=== PATIENT | male | born 2000 | race Caucasian/White ===

== ENCOUNTER 2020-09-05 17:20 | Inpatient (IN) ==
[~2020-09-05 17:20] MED LIST: *HR* Etomidate 20 MG/10 ML AMPUL IVP ONE; *HR* Rocuronium Bromide 100 MG/10 ML VIAL IVP ONE
[2020-09-05] MEDS ORDERED: Isovue-370 500 ML BOTTLE IVP ONE (17:40)
[2020-09-05] MEDS ORDERED: 0.9 % Sodium Chloride 1,000 ML IVC ONE ×3 (17:43→19:25)
[2020-09-05 18:13] LABS: Hematocrit 45.5 % (37.5-50.1); Hemoglobin 15.2 g/dL (12.9-16.9); Mean Corpuscular HGB Conc 33.4 g/dL (31.6-35.5); Mean Corpuscular Hemoglobin 31.8 pg (28.0-33.3); Mean Corpuscular Volume 95.2 fL (83.0-100.0); Mean Platelet Volume 9.6 fL (9.4-12.4); Platelet Count 173 K/mcL (140-400); Red Blood Count 4.78 M/mcL (4.19-5.50); Red Cell Distribution Width 11.8 % (11.5-14.5); White Blood Count 12.1 K/mcL (4.3-11.1)
[2020-09-05 18:14] LABS: INR 1.7; Prothrombin Time 19.4 Seconds (9.4-12.1)
[2020-09-05 18:16] LABS: Activated Partial Thrombo Time 35.4 Seconds (26.0-36.0)
[2020-09-05] MEDS ORDERED: Piperacillin/Tazobactam 3.375 GM in 0.9 % Sodium Chloride Mini Bag 100 ML IVPB ONE (18:18)
[2020-09-05 18:36] LABS: Acetaminophen < 10 mcg/mL (10-20); Alanine Aminotransferase 304 Units/L (7-52); Albumin 4.3 g/dL (3.5-5.7); Albumin/Globulin Ratio 1.9 (1.1-2.2); Alkaline Phosphatase 56 Units/L (34-104); Aspartate Amino Transferase 367 Units/L (13-39); BUN/Creatinine Ratio 11 (6-26); Bilirubin,Direct 0.5 mg/dL (0.0-0.2); Bilirubin,Indirect 1.4 mg/dL (0.0-1.0); Bilirubin,Total 1.9 mg/dL (0.3-1.0); Blood Urea Nitrogen 19 mg/dL (6-20); Calcium 9.1 mg/dL (8.6-10.3); Carbon Dioxide 24 mEq/L (23-29); Chloride 106 mEq/L (98-107); Creatine Kinase 1854 Units/L (30-223); Ethanol < 10 mg/dL (Less than 10); Globulin 2.3 g/dL (2.4-3.5); Glucose 100 mg/dL (70-105); Osmolality,Calculated 292 (280-300); Potassium 5.1 mEq/L (3.5-5.1); Sodium 140 mEq/L (136-145); Total Protein 6.6 g/dL (6.4-8.9); Troponin I 2.23 ng/mL (< 0.04); eGFR For African Americans 58 (> 60); eGFR For Non-African Americans 48 (> 60)
[2020-09-05 18:43] LABS: Lymphocytes # 3.6 K/mcL (0.6-4.6); Monocytes # 0.7 K/mcL (0.0-1.3); Platelet Estimate Normal (Normal)
[2020-09-05 18:45] LABS: Thyroid Stimulating Hormone 0.395 mcIU/mL (0.340-5.600)
[2020-09-05] MEDS ORDERED: *HR* FentaNYL (PF) 1,000 MCG/20 ML VIAL ONE (18:48)
[2020-09-05] MEDS ORDERED: 0.9 % Sodium Chloride 1,000 ML ONE (18:52)
[2020-09-05] MEDS: FentaNYL (PF) 1,000 MCG/100 ML IV.SOLN IVC SCH (19:00)
[2020-09-05 19:07] LABS: Bilirubin,Urine Negative (Negative); Blood,Urine Small (Negative); Clarity,Urine Clear (Clear); Color,Urine Light-Yellow (Yellow); Glucose,Urine (UA) 100 mg/dL (Normal); Ketones,Urine Negative (Negative); Leukocyte Esterase,Urine Negative (Negative); Mucus,Urine Few per lpf (None-Few); Nitrite,Urine Negative (Negative); PH,Urine 5.5 pH Units (5.0-8.0); Protein,Urine Trace mg/dL (Neg-Trace); RBC,Urine 0-3 per hpf (0-3); Specific Gravity,Urine 1.012 (1.010-1.025); Squamous Epithelial Cell,Urine Few per hpf (None-Few); Urobilinogen,Urine Normal (Normal); WBC,Urine 0-3 per hpf (0-3)
[2020-09-05 19:17] LABS: Amphetamine Screen,Urine Negative ng/mL (Cutoff=1000); Barbiturate Screen,Urine Negative ng/mL (Cutoff=200); Benzodiazepines Screen,Urine Negative ng/mL (Cutoff=200); Cannabinoid Screen,Urine Positive ng/mL (Cutoff = 50); Cocaine Screen,Urine Negative ng/mL (Cutoff= 300); Opiate Screen,Urine Negative ng/mL (Cutoff=300); Phencyclidine Screen,Urine Negative ng/mL (Cutoff=25)
[2020-09-05 20:03] LABS: ABG Base Excess -7 mEq/L (-2 to 3); ABG HCO3 22 mEq/L (21-27); ABG Oxygen Saturation 87 % (95-98); ABG PCO2 54 mmHg (35-45); ABG PH 7.21 pH Units (7.32-7.45); ABG PO2 64 mmHg (85-104); ABG TCO2 23 mEq/L (20-26); Blood Gas Modality ASSIST CONTROL; Blood Gas VT 450 cc
[2020-09-05 20:47] LABS: Salicylate < 2.5 mg/dL (15.0-30.0)
[2020-09-05] MEDS ORDERED: Naloxone 0.4 MG/ML INJ IVP PRN (21:26)
[2020-09-05] MEDS ORDERED: 0.9 % Sodium Chloride 1,000 ML IVC SCH (21:30)
[2020-09-05] MEDS ORDERED: Vancomycin (wt based) 1,000 MG VIAL IVPB SCH (22:00)
[2020-09-05 22:02] LABS: Prolactin 24.47 ng/mL (3.00-14.70)
[2020-09-05] MEDS ORDERED: Artificial Tears SOLN 15 ML BOTTLE BOTH EYES PRN (23:00)
[2020-09-05] MEDS ORDERED: levETIRAcetam 1,000 MG in 0.9 % Sodium Chloride 100 ML IVPB ONE (23:10)
[2020-09-05 23:21] LABS: ABG Base Excess -2 mEq/L (-2 to 3); ABG HCO3 27 mEq/L (21-27); ABG Oxygen Saturation 95 % (95-98); ABG PCO2 64 mmHg (35-45); ABG PH 7.24 pH Units (7.32-7.45); ABG PO2 88 mmHg (85-104); ABG TCO2 29 mEq/L (20-26); Blood Gas Modality ASSIST CONTROL; Blood Gas VT 450 cc
[2020-09-05] MEDS: Artificial Tears SOLN 15 ML BOTTLE BOTH EYES SCH (23:26)
[2020-09-06 00:01] LABS: Troponin I 1.99 ng/mL (< 0.04)
[2020-09-06] MEDS: Midazolam HCl 50 MG/100 ML IV.SOLN IVC SCH (01:18)
[2020-09-06 01:23] LABS: VBG Ionized Calcium 0.98 mmol/L (1.15-1.35)
[2020-09-06 01:41] LABS: BUN/Creatinine Ratio 15 (6-26); Blood Urea Nitrogen 19 mg/dL (6-20); Carbon Dioxide 24 mEq/L (23-29); Chloride 110 mEq/L (98-107); Glucose 85 mg/dL (70-105); Osmolality,Calculated 292 (280-300); Potassium 5.5 mEq/L (3.5-5.1); Sodium 140 mEq/L (136-145); eGFR For African Americans > 60 (> 60); eGFR For Non-African Americans > 60 (> 60)
[2020-09-06] MEDS: Calcium Gluconate 1gm/50mL 1 GM/50 ML BAG IVPB PRN ×2 (02:24→14:26)
[2020-09-06 03:51] LABS: VBG Ionized Calcium 1.03 mmol/L (1.15-1.35)
[2020-09-06] MEDS: Artificial Tears SOLN 15 ML BOTTLE BOTH EYES SCH ×6 (03:55→23:32)
[2020-09-06] MEDS: FentaNYL (PF) 1,000 MCG/100 ML IV.SOLN IVC SCH (03:56)
[2020-09-06] MEDS ORDERED: Piperacillin/Tazobactam 3.375 GM in 0.9 % Sodium Chloride Mini Bag 100 ML IVPB SCH (04:00)
[2020-09-06 04:05] LABS: Alanine Aminotransferase 448 Units/L (7-52); Albumin 3.4 g/dL (3.5-5.7); Albumin/Globulin Ratio 1.9 (1.1-2.2); Alkaline Phosphatase 42 Units/L (34-104); Aspartate Amino Transferase 445 Units/L (13-39); BUN/Creatinine Ratio 16 (6-26); Bilirubin,Total 2.5 mg/dL (0.3-1.0); Blood Urea Nitrogen 19 mg/dL (6-20); Calcium 7.5 mg/dL (8.6-10.3); Carbon Dioxide 25 mEq/L (23-29); Chloride 111 mEq/L (98-107); Globulin 1.8 g/dL (2.4-3.5); Glucose 83 mg/dL (70-105); Magnesium 1.5 mg/dL (1.6-2.6); Osmolality,Calculated 295 (280-300); Phosphorous 3.6 mg/dL (2.7-4.5); Potassium 4.6 mEq/L (3.5-5.1); Sodium 142 mEq/L (136-145); Total Protein 5.2 g/dL (6.4-8.9); eGFR For African Americans > 60 (> 60); eGFR For Non-African Americans > 60 (> 60)
[2020-09-06 04:10] LABS: Hemoglobin 12.9 g/dL (12.9-16.9); Mean Corpuscular HGB Conc 33.1 g/dL (31.6-35.5); Mean Corpuscular Hemoglobin 32.3 pg (28.0-33.3); Mean Corpuscular Volume 97.5 fL (83.0-100.0); Mean Platelet Volume 9.8 fL (9.4-12.4); Platelet Count 117 K/mcL (140-400); White Blood Count 8.6 K/mcL (4.3-11.1)
[2020-09-06] MEDS: 0.9 % Sodium Chloride 1,000 ML IVC SCH ×2 (04:40→12:45)
[2020-09-06 04:42] LABS: ABG Base Excess -1 mEq/L (-2 to 3); ABG HCO3 25 mEq/L (21-27); ABG Oxygen Saturation 96 % (95-98); ABG PCO2 48 mmHg (35-45); ABG PH 7.33 pH Units (7.32-7.45); ABG PO2 91 mmHg (85-104); ABG TCO2 27 mEq/L (20-26); Blood Gas Modality ASSIST CONTROL; Blood Gas VT 450 cc
[2020-09-06 05:09] LABS: Lymphocytes # 1.2 K/mcL (0.6-4.6); Monocytes # 0.2 K/mcL (0.0-1.3); Neutrophils # 6.5 K/mcL (1.6-8.9); Platelet Estimate Slight Decrease (Normal)
[2020-09-06 05:10] LABS: Anisocytosis 1+ (Not Present); Toxic Granulation Present (Not Present); Toxic Vacuolation Present (Not Present)
[2020-09-06 05:25] LABS: Hematocrit 36.9 % (37.5-50.1); Hemoglobin 12.2 g/dL (12.9-16.9); Immature Platelets 3.6 % (1.1-6.1); Mean Corpuscular HGB Conc 33.1 g/dL (31.6-35.5); Mean Corpuscular Hemoglobin 31.8 pg (28.0-33.3); Mean Corpuscular Volume 96.1 fL (83.0-100.0); Mean Platelet Volume 9.5 fL (9.4-12.4); Nucleated Red Blood Cells 0.2 /100 WBC (0); Platelet Count 103 K/mcL (140-400); Red Blood Count 3.84 M/mcL (4.19-5.50); Red Cell Distribution Width 12.1 % (11.5-14.5); White Blood Count 8.4 K/mcL (4.3-11.1)
[2020-09-06] MEDS: Vancomycin 1,250 MG/262.5 ML IV.SOLN IVPB SCH ×2 (05:32→17:57)
[2020-09-06 05:40] LABS: BUN/Creatinine Ratio 16 (6-26); Blood Urea Nitrogen 17 mg/dL (6-20); Calcium 6.6 mg/dL (8.6-10.3); Carbon Dioxide 24 mEq/L (23-29); Chloride 113 mEq/L (98-107); Glucose 76 mg/dL (70-105); Osmolality,Calculated 296 (280-300); Sodium 143 mEq/L (136-145); eGFR For African Americans > 60 (> 60); eGFR For Non-African Americans > 60 (> 60)
[2020-09-06 05:56] LABS: Acetaminophen < 10 mcg/mL (10-20); Monocytes # 0.2 K/mcL (0.0-1.3); Neutrophils # 5.7 K/mcL (1.6-8.9)
[2020-09-06 05:57] LABS: Anisocytosis 1+ (Not Present); Platelet Estimate Slight Decrease (Normal); Toxic Granulation Present (Not Present); Toxic Vacuolation Present (Not Present)
[2020-09-06] MEDS: *HR* Heparin 5,000 UNIT/ML VIAL SQ SCH ×3 (06:01→20:29)
[2020-09-06] MEDS: Pantoprazole 40 MG VIAL IVP SCH (07:22)
[2020-09-06] MEDS: Chlorhexidine Rinse 15 ML MOUTHWASH MM SCH ×2 (07:22→19:45)
[2020-09-06 08:35] LABS: VBG Ionized Calcium 1.02 mmol/L (1.15-1.35)
[2020-09-06 08:38] LABS: INR 2.3; Prothrombin Time 26.5 Seconds (9.4-12.1)
[2020-09-06] MEDS ORDERED: Perflutren Lipid Microsphere 1.3 ML in 0.9 % Sodium Chloride 8.7 ML IVP PRN (11:05)
[2020-09-06] MEDS: Cefepime HCl 2,000 MG in Water for inj. (sterile) 20 ML IVP SCH ×2 (11:47→19:09)
[2020-09-06 12:37] LABS: VBG Ionized Calcium 1.05 mmol/L (1.15-1.35)
[2020-09-06 12:56] LABS: BUN/Creatinine Ratio 17 (6-26); Blood Urea Nitrogen 18 mg/dL (6-20); Calcium 7.6 mg/dL (8.6-10.3); Carbon Dioxide 25 mEq/L (23-29); Chloride 109 mEq/L (98-107); Creatine Kinase 1808 Units/L (30-223); Glucose 89 mg/dL (70-105); Osmolality,Calculated 293 (280-300); Potassium 4.4 mEq/L (3.5-5.1); Sodium 141 mEq/L (136-145); eGFR For African Americans > 60 (> 60); eGFR For Non-African Americans > 60 (> 60)
[2020-09-06 13:03] LABS: Troponin I 1.38 ng/mL (< 0.04)
[2020-09-06] MEDS ORDERED: Furosemide 20 MG/2 ML VIAL IVP ONE ×2 (13:26→13:31)
[2020-09-06] MEDS ORDERED: Gadolinium Contrast Agent (WT Based) IV PRN ×2 (17:09→17:44)
[2020-09-06] MEDS: Furosemide 20 MG/2 ML VIAL IVP SCH (19:45)
[2020-09-06] MEDS ORDERED: levETIRAcetam 250 MG in 0.9 % Sodium Chloride 100 ML IVPB SCH (21:00)
[2020-09-06 22:13] LABS: Magnesium 1.9 mg/dL (1.6-2.6)
[2020-09-06] MEDS: Acyclovir 800 MG in D5% in Water 250 ML IVPB SCH (23:33)
[2020-09-07] MEDS: Midazolam HCl 50 MG/100 ML IV.SOLN IVC SCH (02:41)
[2020-09-07] MEDS: Artificial Tears SOLN 15 ML BOTTLE BOTH EYES SCH ×4 (02:41→15:24)
[2020-09-07] MEDS: Cefepime HCl 2,000 MG in Water for inj. (sterile) 20 ML IVP SCH ×3 (02:47→18:19)
[2020-09-07 03:15] LABS: BUN/Creatinine Ratio 22 (6-26); Blood Urea Nitrogen 21 mg/dL (6-20); Calcium 8.4 mg/dL (8.6-10.3); Carbon Dioxide 30 mEq/L (23-29); Chloride 103 mEq/L (98-107); Glucose 90 mg/dL (70-105); Osmolality,Calculated 291 (280-300); Sodium 139 mEq/L (136-145); eGFR For African Americans > 60 (> 60); eGFR For Non-African Americans > 60 (> 60)
[2020-09-07] MEDS: *HR* Heparin 5,000 UNIT/ML VIAL SQ SCH ×2 (06:07→23:03)
[2020-09-07 06:54] LABS: Hemoglobin 12.7 g/dL (12.9-16.9)
[2020-09-07 06:56] LABS: Hematocrit 37.5 % (37.5-50.1); Mean Corpuscular HGB Conc 33.9 g/dL (31.6-35.5); Mean Corpuscular Hemoglobin 31.3 pg (28.0-33.3); Mean Corpuscular Volume 92.4 fL (83.0-100.0); Mean Platelet Volume 10.5 fL (9.4-12.4); Nucleated Red Blood Cells 0.3 /100 WBC (0); Red Blood Count 4.06 M/mcL (4.19-5.50); Red Cell Distribution Width 11.9 % (11.5-14.5); White Blood Count 7.1 K/mcL (4.3-11.1)
[2020-09-07 07:04] LABS: Platelet Count 89 K/mcL (140-400)
[2020-09-07 07:27] LABS: Albumin 3.6 g/dL (3.5-5.7); Albumin/Globulin Ratio 1.5 (1.1-2.2); Bilirubin,Direct 0.9 mg/dL (0.0-0.2); Bilirubin,Indirect 3.4 mg/dL (0.0-1.0); Bilirubin,Total 4.3 mg/dL (0.3-1.0); Globulin 2.4 g/dL (2.4-3.5)
[2020-09-07] MEDS: Chlorhexidine Rinse 15 ML MOUTHWASH MM SCH (09:04)
[2020-09-07] MEDS: Pantoprazole 40 MG VIAL IVP SCH (09:07)
[2020-09-07] MEDS: Acyclovir 800 MG in D5% in Water 250 ML IVPB SCH ×2 (09:07→15:43)
[2020-09-07] MEDS: Furosemide 20 MG/2 ML VIAL IVP SCH (09:07)
[2020-09-07] MEDS: Vancomycin 1,500 MG/265 ML IV.SOLN IVPB SCH ×2 (09:08→15:42)
[2020-09-07 09:42] LABS: INR 1.5; Prothrombin Time 17.2 Seconds (9.4-12.1)
[2020-09-07 09:42] LABS: Eosinophils # 0.6 K/mcL (0.0-0.6); Lymphocytes # 0.9 K/mcL (0.6-4.6); Monocytes # 0.1 K/mcL (0.0-1.3); Neutrophils # 4.7 K/mcL (1.6-8.9)
[2020-09-07 09:43] LABS: Platelet Estimate Decreased (Normal)
[2020-09-07 09:44] LABS: Dohle Bodies Present (Not Present); Toxic Granulation Present (Not Present)
[2020-09-07 14:01] LABS: Red Blood Cell,CSF < 2000 RBC/mcL
[2020-09-07 14:14] LABS: Appearance,CSF Clear (Clear)
[2020-09-07 14:27] LABS: Glucose,CSF 66 mg/dL (40-70); Total Protein,CSF 47 mg/dL (15-45)
[2020-09-07 15:24] LABS: Basophils,CSF 0 %; Eosinophils,CSF 0 %; Other Cells,CSF 0 %
[2020-09-07] MEDS: FentaNYL (PF) 1,000 MCG/100 ML IV.SOLN IVC SCH (16:24)
[2020-09-07] MEDS ORDERED: Naloxone 0.4 MG/ML INJ IVP PRN (16:32)
[2020-09-07] MEDS ORDERED: Calcium Gluconate 1gm/50mL 1 GM/50 ML BAG IVPB PRN (16:32)
[2020-09-07 16:54] LABS: Hepatitis B Surface Antigen Nonreactive (Nonreactive)
[2020-09-07 17:23] LABS: Hepatitis C Virus Antibody Nonreactive (Nonreactive)
[2020-09-07 17:24] LABS: Hepatitis B Core IgM Nonreactive (Nonreactive)
[2020-09-07 17:25] LABS: HIV-1&2 Antibody & p24 Ag Nonreactive (Nonreactive); Hepatitis A Antibody IgM Nonreactive (Nonreactive)
[2020-09-07] MEDS ORDERED: Budesonide/Formoterol 160/4.5 1 PUFF INH IH SCH (22:00)
[2020-09-07] MEDS ORDERED: *HR* Heparin 5,000 UNIT/ML VIAL SQ SCH (22:00)
[2020-09-07] MEDS ORDERED: Ipratropium/Albuterol Neb 3 ML IH SCH (22:00)
[2020-09-08] MEDS: Acyclovir 800 MG in D5% in Water 250 ML IVPB SCH ×4 (03:04→23:49)
[2020-09-08] MEDS: Vancomycin 1,500 MG/265 ML IV.SOLN IVPB SCH ×2 (03:05→09:13)
[2020-09-08] MEDS: Cefepime HCl 2,000 MG in Water for inj. (sterile) 20 ML IVP SCH ×3 (03:05→20:36)
[2020-09-08] MEDS: *HR* Heparin 5,000 UNIT/ML VIAL SQ SCH ×3 (06:30→20:30)
[2020-09-08 07:19] LABS: Basophils # 0.1 K/mcL (0.0-0.2); Basophils % 0.5 %; Eosinophils # 0.3 K/mcL (0.0-0.6); Eosinophils % 3.6 %; Hematocrit 37.8 % (37.5-50.1); Immature Granulocytes % 1.2 % (0-4); Immature Platelets 5.2 % (1.1-6.1); Lymphocytes # 1.2 K/mcL (0.6-4.6); Lymphocytes % 13.3 %; Mean Corpuscular HGB Conc 34.4 g/dL (31.6-35.5); Mean Corpuscular Hemoglobin 31.3 pg (28.0-33.3); Mean Corpuscular Volume 90.9 fL (83.0-100.0); Mean Platelet Volume 10.2 fL (9.4-12.4); Monocytes # 0.6 K/mcL (0.0-1.3); Monocytes % 6.3 %; Platelet Count 123 K/mcL (140-400); Red Blood Count 4.16 M/mcL (4.19-5.50); Red Cell Distribution Width 11.7 % (11.5-14.5); Segmented Neutrophils % 75.1 %; White Blood Count 9.3 K/mcL (4.3-11.1)
[2020-09-08 07:36] LABS: Alanine Aminotransferase 1818 Units/L (7-52); Albumin 3.5 g/dL (3.5-5.7); Albumin/Globulin Ratio 1.3 (1.1-2.2); Alkaline Phosphatase 59 Units/L (34-104); Aspartate Amino Transferase 463 Units/L (13-39); BUN/Creatinine Ratio 25 (6-26); Bilirubin,Direct 0.4 mg/dL (0.0-0.2); Bilirubin,Indirect 2.1 mg/dL (0.0-1.0); Bilirubin,Total 2.5 mg/dL (0.3-1.0); Blood Urea Nitrogen 18 mg/dL (6-20); Calcium 8.6 mg/dL (8.6-10.3); Carbon Dioxide 26 mEq/L (23-29); Chloride 104 mEq/L (98-107); Globulin 2.7 g/dL (2.4-3.5); Glucose 80 mg/dL (70-105); Osmolality,Calculated 285 (280-300); Potassium 3.9 mEq/L (3.5-5.1); Sodium 137 mEq/L (136-145); Total Protein 6.2 g/dL (6.4-8.9); eGFR For African Americans > 60 (> 60); eGFR For Non-African Americans > 60 (> 60)
[2020-09-08] MEDS: Pantoprazole 40 MG VIAL IVP SCH (09:21)
[2020-09-08] MEDS: Nicotine 21 MG PATCH.TD24 TD SCH (11:48)
[2020-09-08 11:52] LABS: Creatine Kinase 220 Units/L (30-223)
[2020-09-08] MEDS ORDERED: Vancomycin 1,500 MG/265 ML IV.SOLN IVPB SCH (17:00)
[2020-09-08] MEDS ORDERED: Sennosides/Docusate Sodium TABLET PO PRN (17:36)
[2020-09-08] MEDS: Vancomycin 1,750 MG/517.5 ML IV.SOLN IVPB SCH (18:07)
[2020-09-09] MEDS: Vancomycin 1,750 MG/517.5 ML IV.SOLN IVPB SCH (01:19)
[2020-09-09 05:09] LABS: Basophils # 0.1 K/mcL (0.0-0.2); Hemoglobin 12.2 g/dL (12.9-16.9); Immature Platelets 4.4 % (1.1-6.1); Mean Corpuscular HGB Conc 33.9 g/dL (31.6-35.5); Mean Corpuscular Hemoglobin 31.3 pg (28.0-33.3); Mean Corpuscular Volume 92.3 fL (83.0-100.0); Nucleated Red Blood Cells 0.3 /100 WBC (0); Platelet Count 132 K/mcL (140-400); Red Cell Distribution Width 11.7 % (11.5-14.5); White Blood Count 6.4 K/mcL (4.3-11.1)
[2020-09-09] MEDS: Cefepime HCl 2,000 MG in Water for inj. (sterile) 20 ML IVP SCH ×2 (05:20→11:24)
[2020-09-09 05:21] LABS: INR 1.3; Prothrombin Time 14.9 Seconds (9.4-12.1)
[2020-09-09] MEDS: *HR* Heparin 5,000 UNIT/ML VIAL SQ SCH (05:27)
[2020-09-09 05:39] LABS: Alanine Aminotransferase 1119 Units/L (7-52); Albumin 3.3 g/dL (3.5-5.7); Albumin/Globulin Ratio 1.2 (1.1-2.2); Alkaline Phosphatase 59 Units/L (34-104); Aspartate Amino Transferase 151 Units/L (13-39); BUN/Creatinine Ratio 17 (6-26); Bilirubin,Total 1.5 mg/dL (0.3-1.0); Blood Urea Nitrogen 13 mg/dL (6-20); Carbon Dioxide 27 mEq/L (23-29); Chloride 106 mEq/L (98-107); Globulin 2.7 g/dL (2.4-3.5); Glucose 85 mg/dL (70-105); Osmolality,Calculated 287 (280-300); Potassium 3.8 mEq/L (3.5-5.1); Sodium 139 mEq/L (136-145); eGFR For African Americans > 60 (> 60); eGFR For Non-African Americans > 60 (> 60)
[2020-09-09 05:48] LABS: Eosinophils # 0.6 K/mcL (0.0-0.6); Monocytes # 0.4 K/mcL (0.0-1.3); Neutrophils # 4.2 K/mcL (1.6-8.9)
[2020-09-09 05:49] LABS: Platelet Estimate Decreased (Normal); Reactive Lymphocytes Present (Not Present)
[2020-09-09] MEDS ORDERED: MetroNIDAZOLE 500 MG/100 ML 500 MG/100 ML BAG IVPB SCH (08:00)
[2020-09-09] MEDS: Nicotine 21 MG PATCH.TD24 TD SCH (08:43)
[2020-09-09] MEDS: Pantoprazole 40 MG VIAL IVP SCH (08:43)
[2020-09-09 11:58] VITALS: BP 105/66
== END 2020-09-09 14:19 | disposition home or self-care (01) | DRG 720 ==
LOC: EMEROOARM 17:20 → ICNU 21:23 → SUATTDRO 21:23 → ICNU 22:55 → 3ANU 09-08 14:39
PROVIDERS: ADMIT Student in an Organized Health Care Education/Training Program; ATTEND Internal Medicine

== ENCOUNTER 2021-01-02 00:55 | Observation (INO) ==
[2021-01-02] MEDS ORDERED: Naloxone 0.4 MG/ML INJ IVP ONE ×2 (01:15→01:57)
[2021-01-02 01:33] LABS: Basophils % 0.2 %; Eosinophils # 0.2 K/mcL (0.0-0.6); Eosinophils % 1.9 %; Hematocrit 40.3 % (37.5-50.1); Hemoglobin 13.8 g/dL (12.9-16.9); Immature Granulocytes % 0.4 % (0-4); Lymphocytes # 1.3 K/mcL (0.6-4.6); Lymphocytes % 15.8 %; Mean Corpuscular HGB Conc 34.2 g/dL (31.6-35.5); Mean Corpuscular Hemoglobin 31.1 pg (28.0-33.3); Mean Corpuscular Volume 90.8 fL (83.0-100.0); Mean Platelet Volume 9.6 fL (9.4-12.4); Monocytes # 0.7 K/mcL (0.0-1.3); Monocytes % 8.5 %; Neutrophils # 5.9 K/mcL (1.6-8.9); Platelet Count 193 K/mcL (140-400); Red Blood Count 4.44 M/mcL (4.19-5.50); Red Cell Distribution Width 11.8 % (11.5-14.5); Segmented Neutrophils % 73.2 %
[2021-01-02 01:52] LABS: BUN/Creatinine Ratio 16 (6-26); Blood Urea Nitrogen 14 mg/dL (6-20); Calcium 9.5 mg/dL (8.6-10.3); Carbon Dioxide 27 mEq/L (23-29); Chloride 102 mEq/L (98-107); Ethanol < 10 mg/dL (Less than 10); Glucose 87 mg/dL (70-105); Osmolality,Calculated 284 (280-300); Sodium 137 mEq/L (136-145); eGFR For African Americans > 60 (> 60); eGFR For Non-African Americans > 60 (> 60)
[2021-01-02 01:53] LABS: Troponin I < 0.03 ng/mL (< 0.04)
[2021-01-02 02:20] LABS: Amphetamine Screen,Urine Negative ng/mL (Cutoff=1000); Barbiturate Screen,Urine Negative ng/mL (Cutoff=200); Benzodiazepines Screen,Urine Positive ng/mL (Cutoff=200); Cannabinoid Screen,Urine Positive ng/mL (Cutoff = 50); Cocaine Screen,Urine Negative ng/mL (Cutoff= 300); Opiate Screen,Urine Positive ng/mL (Cutoff=300); Phencyclidine Screen,Urine Negative ng/mL (Cutoff=25)
[2021-01-02] MEDS ORDERED: Isovue-370 500 ML BOTTLE IVP ONE (02:21)
[2021-01-02 06:39] LABS: Alanine Aminotransferase 106 Units/L (7-52); Albumin 4.4 g/dL (3.5-5.7); Albumin/Globulin Ratio 1.6 (1.1-2.2); Alkaline Phosphatase 54 Units/L (34-104); Aspartate Amino Transferase 58 Units/L (13-39); Bilirubin,Direct 0.5 mg/dL (0.0-0.2); Bilirubin,Indirect 1.6 mg/dL (0.0-1.0); Bilirubin,Total 2.1 mg/dL (0.3-1.0); Globulin 2.8 g/dL (2.4-3.5); Lipase 7 Units/L (11-82); Total Protein 7.2 g/dL (6.4-8.9)
[2021-01-02 08:08] VITALS: BP 129/85
[2021-01-02] MEDS ORDERED: Ondansetron 4 MG/2 ML VIAL IVP PRN (08:30)
[2021-01-02] MEDS ORDERED: Acetaminophen 325 MG TABLET PO PRN (08:30)
[2021-01-02] MEDS ORDERED: Naloxone 0.4 MG/ML INJ IVP PRN (08:30)
== END 2021-01-02 11:40 | disposition home or self-care (01) ==
LOC: 3ANU 00:55 → EMEROOARM 00:55 → 3ANU 07:53
PROVIDERS: ADMIT Internal Medicine; ATTEND Internal Medicine